=== PATIENT | female | born 1995 | race African-American/Black ===

== ENCOUNTER 2018-06-01 13:12 | Observation (INO) ==
[2018-06-01] MEDS ORDERED: Sod Chloride 0.9% Inj 1,000 ML IV.SIG ONE (13:53)
--- NOTE | 2018-06-01 14:26 | ED ---
HPI Related Data : 1 Para: 0 Total number of abortions (spontaneous and elective): 1 Home Medications Medication Instructions Recorded Confirmed metformin 500 mg PO BID 06/01/18 06/01/18 Previous Rx's Medication Instructions Recorded doxycycline hyclate 100 mg PO BID 7 Days #14 cap 06/01/18 naproxen 500 mg PO BID PRN #10 tab 06/01/18 Allergies Allergy/AdvReac Type Severity Reaction Status Date / Time No Known Allergies Allergy Verified 06/01/18 13:35 General Chief complaint: Vaginal Bleeding Stated complaint: Bleeding / weakness Time Seen by Provider: 06/01/18 13:52 Source: patient Mode of arrival: ambulatory Limitations: no limitations History of Present Illness HPI Narrative: 23-year-old female with a history of diabetes mellitus presents to the emergency department for evaluation of worsening vaginal bleeding over the last couple days. Patient states that she started having vaginal bleeding last Friday and decided to go to [facility] Friday for evaluation. She states that she was 11 weeks however, they dated her at 8 weeks and believe that she had a miscarriage. Patient says this morning the bleeding increased and she started having increased abdominal pain rated 8/10. She says the pain was in her lower pelvic region and back. She states that she had an appointment with her OB today however, she could not wait because of the pain and bleeding. She says she has had a lot of clots. She denies fevers but states she has had chills. Denies chest pain, shortness of breath. Says she has had occasional nausea without vomiting. Her last bowel movement was this morning which was normal for her. She states that her last sexual encounter was 3 weeks ago. She denies vaginal discharge or odor. She denies any other medical issues to include blood disorders. MD Complaint: Reports abdominal pain and vaginal bleeding Pain Consistency: constant Location: Reports pelvis Severity: moderate Quality: Cramping Radiation: Reports pelvis Relieving factors: none Exacerbating factors: none Associated symptoms: Reports nausea and vaginal bleeding; Denies vomiting and vaginal discharge Vaginal bleeding: Reports heavy and clots Review of Systems ROS: all other systems reviewed are negative PMFSH - Medical History Medical History Diabetes (Acute) Family history of diabetes mellitus (Acute) Miscarriage (Acute) No significant past surgical history (Acute) Social History Social History Substance History: No History of Abuse Second Hand Smoke Exposure: No Smoking Status: Never smoker How Often Do You Have a Drink Containing Alcohol: Monthly or less Hx Recent Travel: No Recent Travel in [facility] within the Last 8 Weeks: No Recent Out of Country Travel within the Last 8 Weeks: No Exam Narrative Exam Narrative: GENERAL: WD, WN in NAD SKIN: Focused skin assessment warm/dry. HEAD: Atraumatic. Normocephalic. EYES: Pupils equal and round. No scleral icterus. No injection or drainage. ENT: No nasal bleeding or discharge. Mucous membranes pink and moist. NECK: Trachea midline. No JVD. CARDIOVASCULAR: Regular rate and rhythm. No murmur appreciated. RESPIRATORY: No accessory muscle use. Clear to auscultation. Breath sounds equal bilaterally. GASTROINTESTINAL: Abdomen lower pelvic distended, TTP without rebound tenderness , no CVAT GENITOURINARY: performed with nurse in the room. Normal external genitalia without lesions or erythema. Vaginal vault with continuous bright red blood and clots present. Unable to visualize cervical loss secondary to continuous bleeding. No unusual odor or discharge other than blood. Mild TTP during vaginal exam without adnexal tenderness. No cervical motion tenderness. Uterus tender and enlarged. Bilateral adnexa nontender without masses. MUSCULOSKELETAL: No obvious deformities. No clubbing. No cyanosis. No edema. NEUROLOGICAL: Awake and alert. No obvious cranial nerve deficits. Motor grossly within normal limits. Normal speech. PSYCHIATRIC: Appropriate mood and affect; insight and judgment normal. Course Initial Documented Vital Signs Temperature 97.8 F 06/01/18 13:30 Pulse Rate 100 H 06/01/18 13:30 Respiratory Rate 17 06/01/18 13:30 Blood Pressure 87/55 L 06/01/18 13:30 Pulse Oximetry 100 06/01/18 13:30 Last Documented Vital Signs Temperature 98.3 F 06/01/18 21:49 Pulse Rate 97 H 06/01/18 21:49 Respiratory Rate 20 06/01/18 21:49 Blood Pressure 97/55 L 06/01/18 21:49 Pulse Oximetry 98 06/01/18 19:37 Medical Decision Making DEANNE Attestation DEANNE supervised visit: Yes Attestation: I, Dr. boyle, have reviewed the advance practice practitioner's documentation and am in agreement, met with the patient face to face, made the diagnosis, and the medical decision making was done by me. *My assessment and Findings: 23 G1 at approximately 8 weeks by prior ultrasound but by dates was supposed to be 11 weeks presents with vaginal bleeding. Her initial hemoglobin is 8. She is still bleeding heavily despite Cytotec and her repeat hemoglobin is 7.3. She will be given 1 unit of blood and gynecology will see for evaluation of a possible D&C MDM Narrative Medical decision making narrative: 23-year-old female presents to the emergency department for evaluation of pelvic cramping and vaginal bleeding that worsened this morning. She states that the vaginal bleeding and cramping started last Friday. She went to [facility] and was evaluated with ultrasound and found that the was likely terminated because of the age of the . She believed she was 11 weeks and was dated for 8 weeks. Initial vital signs: BP 87/55, HR 100, 100% Room Air. Initially hemodynamically unstable, 1L NS improved BP to 107/60, HR 88. CBC notable for WBC 16.9, H/H 8.6/28.7. I spoke with Dr. Dow, OB hospitalist rent control office manager who recommended Cytotec 200 mg vaginally and monitor for stability. She will be monitored for 1-2 hours and if no improvement, she'll need to go to the OR for a D&C. @1630 Spoke with patient a boyfriend regarding plan. They agreed. Please see my attending's note as well regarding this patient. She placed a called to Dr. Dow who agreed to see this patient in the ED today. @[address] Dow he said he was able to remove additional clots and tissue from the distal uterus and cervix. He asked me to administer Pitocin 10units IM and Methergine 0.2mg IM in addition to 1U PRBCs. He stated that if she continued to soak through another pad to call him back for a D&C. Plan to discharge after the 1U PRBCs with doxycycline and naproxen for pain. Because of the length of time she requires in the ED, will admit. She has not yet received blood products and patient continues to feel lightheaded and weak. I discussed with Dr. Dow who agreed to the admission. Medical Screen Exam Complete: Yes Emergency Medical Condition: Yes Differential Diagnosis Differential Diagnosis: Threatened , incomplete , retained products of conception, vaginal bleeding, dysfunctional uterine bleeding, cervicitis, myometritis Lab Data Result diagrams: 06/01/18 17:15 06/01/18 13:00 Lab Results 06/01/18 06/01/18 06/01/18 Range/Units 13:00 13:00 13:00 WBC 16.9 H (4.0-11.0) th/mm3 RBC 3.99 L (4.00-5.30) mil/mm3 Hgb 8.6 L (11.6-15.3) gm/dL Hct 28.7 L (35.0-46.0) % MCV 71.9 L (80.0-100.0) fL MCH 21.5 L (27.0-34.0) pg MCHC 29.9 L (32.0-36.0) % RDW 18.1 H (11.6-17.2) % Plt Count 261 (150-450) th/mm3 MPV 9.0 (7.0-11.0) fL Prelim Diff (Auto) Manual diff required WBC Differential Manual diff final Seg Neuts % (Manual) 89 H (16-70) % Band Neuts % (Manual) 2 (0-6) % Lymphocytes % (Manual) 7 L (9-44) % Monocytes % (Manual) 2 (0-8) % Abs Neuts (Manual) 15.4 H (1.8-7.7) th/mm3 Differential Comment . Platelet Estimate Normal (Normal) Platelet Morphology Normal (Normal) PT (9.8-11.6) sec INR Ratio APTT (24.3-30.1) sec Sodium 136 (136-145) meq/L Potassium 4.3 (3.5-5.1) meq/L Chloride 106 (98-107) meq/L Carbon Dioxide 21.3 (21.0-32.0) meq/L Anion Gap 9 (5-15) meq/L BUN 11 (7-18) mg/dL Creatinine 0.76 (0.50-1.00) mg/dL Estimated GFR Greater than 89 (>89) mL/min Random Glucose 322 H (74-106) mg/dL Calcium 8.1 L (8.5-10.1) mg/dL Beta HCG, Quant 1091 H (0-5) mIU/mL Blood Type O Positive Blood Type Recheck Antibody Screen Negative MTS Gel Crossmatch 06/01/18 06/01/18 06/01/18 Range/Units 14:20 17:15 18:20 WBC (4.0-11.0) th/mm3 RBC (4.00-5.30) mil/mm3 Hgb 7.3 L (11.6-15.3) gm/dL Hct (35.0-46.0) % MCV (80.0-100.0) fL MCH (27.0-34.0) pg MCHC (32.0-36.0) % RDW (11.6-17.2) % Plt Count (150-450) th/mm3 MPV (7.0-11.0) fL Prelim Diff (Auto) WBC Differential Seg Neuts % (Manual) (16-70) % Band Neuts % (Manual) (0-6) % Lymphocytes % (Manual) (9-44) % Monocytes % (Manual) (0-8) % Abs Neuts (Manual) (1.8-7.7) th/mm3 Differential Comment Platelet Estimate (Normal) Platelet Morphology (Normal) PT 12.5 H (9.8-11.6) sec INR 1.2 Ratio APTT 19.6 L (24.3-30.1) sec Sodium (136-145) meq/L Potassium (3.5-5.1) meq/L Chloride (98-107) meq/L Carbon Dioxide (21.0-32.0) meq/L Anion Gap (5-15) meq/L BUN (7-18) mg/dL Creatinine (0.50-1.00) mg/dL Estimated GFR (>89) mL/min Random Glucose (74-106) mg/dL Calcium (8.5-10.1) mg/dL Beta HCG, Quant (0-5) mIU/mL Blood Type Blood Type Recheck Antibody Screen MTS Gel Crossmatch See Detail Imaging Data Radiologist's impression: Pelvis Ultrasound 06/01/18 13:53 CONCLUSION: 1. Uterus is enlarged with endometrial stripe thickness about 10 mm. There is some fluid in the endometrial cavity and probable hemorrhage around the cervix. No adnexal mass or free fluid. Discharge Plan Discharge Disposition Patient Disposition: 30 Still Patient Discharge Condition Condition: Fair Discharge Details Diagnosis: Anemia, Missed Physicians Team ED Provider: Wendy Boyle ED Midlevel Provider: Lakia Mercedes Primary Care Provider: Primary Care Tita Schneider Attending Provider: Vahid Dow ED Status: Admitted Observation Patient
[2018-06-01 14:41] LABS: Hematocrit 28.7 % (35.0-46.0); Hemoglobin 8.6 gm/dL (11.6-15.3); Mean Corpuscular Hemoglobin 21.5 pg (27.0-34.0); Mean Corpuscular Volume 71.9 fL (80.0-100.0); Platelet Count 261 th/mm3 (150-450); Red Blood Count 3.99 mil/mm3 (4.00-5.30); Red Cell Distribution Width 18.1 % (11.6-17.2); White Blood Count 16.9 th/mm3 (4.0-11.0)
[2018-06-01 14:48] LABS: Mean Corpuscular HGB Conc 29.9 % (32.0-36.0)
[2018-06-01 15:08] LABS: Anion Gap 9 meq/L (5-15); Blood Urea Nitrogen 11 mg/dL (7-18); Calcium 8.1 mg/dL (8.5-10.1); Carbon Dioxide 21.3 meq/L (21.0-32.0); Chloride 106 meq/L (98-107); Glomerular Filtration Rate Greater Than 89 mL/min (>89); Glucose,Random 322 mg/dL (74-106); Potassium 4.3 meq/L (3.5-5.1); Sodium 136 meq/L (136-145)
[2018-06-01 15:16] LABS: Lymphocytes 7 % (9-44); Monocytes 2 % (0-8); Platelet Estimate Normal (Normal); Platelet Morphology Normal (Normal)
[2018-06-01 15:18] LABS: INR 1.2 Ratio; Prothrombin Time 12.5 sec (9.8-11.6)
[2018-06-01 15:24] LABS: Beta HCG,Quantitative 1091 mIU/mL (0-5)
[2018-06-01] MEDS ORDERED: Sod Chloride 0.9% Inj 1,000 ML IV.SIG SCH (15:30)
[2018-06-01 15:47] LABS: Activated Partial Thrombo Time 19.6 sec (24.3-30.1)
--- NOTE | 2018-06-01 16:35 | US ---
EXAM DATE: 06/01/2018 1:53 PM EDT AGE/SEX: 23 years / Female INDICATIONS: Vaginal bleed post miscarriage. CLINICAL DATA: This is the patient's initial encounter. Patient reports that signs and symptoms have been present for 1 day and indicates a pain score of 5/10. MEDICAL/SURGICAL HISTORY: . Miscarriage. None. COMPARISON: No prior exams available for comparison. TECHNIQUE: Real-time ultrasound of the pelvis was performed using an endovaginal transducer. C,091 MEASUREMENTS: Uterus:__12.9 x 4.5 x 4.2 cm Endometrial Stripe:__10 mm Right Ovary:__ 2.8 x 2.4 x 1.5 cm Left Ovary:__ 4.0 x 2.6 x 1.3 cm FINDINGS: Uterus: Uterus is enlarged endometrial stripe thickness is about 10 mm. There is some fluid in the en dometrial cavity and probable hemorrhage around the cervix. Right Ovary: Ovary contains no mass. Follicles are present. Left Ovary: Ovary contains no mass. Follicles are present. Other: None. CONCLUSION: 1. Uterus is enlarged with endometrial stripe thickness about 10 mm. There is some fluid in the endo metrial cavity and probable hemorrhage around the cervix. No adnexal mass or free fluid. Electronically signed by: Ruben Florian MD 06/01/2018 4:34 PM EDT
[2018-06-01] MEDS ORDERED: miSOPROStol 200 MCG Tablet VAGINAL ONE (16:48)
[2018-06-01] MEDS ORDERED: Sodium Chlor 0.9% Inj 250 ML IV.SIG SCH (19:00)
[2018-06-01] MEDS ORDERED: Methylergonovine Inj 0.2 MG/ML Ampul IM ONE (19:30)
--- NOTE | 2018-06-01 19:53 | P.CONOB ---
History of Present Illness Consult date: 06/01/18 Requesting Physician: Lakia Mercedes Reason for Consult: Continues miscarriage and hemorrhage Primary Care Physician: No Primary Care Physician Chief Complaint: Bleeding vaginally with cramping History of Present Illness: Patient is 23-year-old black female who is in early and now miscarrying. The patient began to have cramping and bleeding Claudia days ago went to [facility] thinking she was 11 weeks along but when they did an ultrasound that she was 8 weeks and likely did not have a heartbeat in her embryo that she would miscarry. She does have an OB doctor but began bleeding and hurting too much to wait to see that doctor so she came to [place] today. Weeks Gestation:: 8 Para: 0 : 1 Review of Systems All other systems reviewed negative except as stated in HPI PMFSH - History History Provided By: Patient - Medical History Medical History: Medical History (Last Reviewed 06/01/18 @ 14:33 by Nargis Golden) Diabetes Family history of diabetes mellitus Miscarriage No significant past surgical history - Tobacco History Second Hand Smoke Exposure: No Smoking Status: Never smoker - Alcohol History How Often Do You Have a Drink Containing Alcohol: Monthly or less - Substance Use History Substance History: No History of Abuse - Travel History History of Recent Travel: No Recent Travel in the [place] Within the Last 8 Weeks: No Recent Travel Out of the Country Within the Last 8 Weeks: No - Immunization History Tetanus Immunization: >5 Years Medications and Allergies Active Medications: Active Medications Sodium Chloride (Ns Inj) 1,000 mls @ 0 mls/hr IV.SIG BOLUS ALIREZA Last Infusion: 06/01/18 16:37 Dose: Infused Sodium Chloride (Ns Inj) 250 mls @ 15 mls/hr IV.SIG ONCE ALIREZA Stop: 06/02/18 11:39 Sodium Chloride (Ns Flush) 2 ml IV.FLUSH PRN PRN PRN Reason: FLUSH AFTER USING IV ACCESS Last Admin: 06/01/18 14:05 Dose: 2 ml Allergies Allergy/AdvReac Type Severity Reaction Status Date / Time No Known Allergies Allergy Verified 06/01/18 13:35 Home Medications Medication Instructions Recorded Confirmed Type metformin 500 mg PO BID 06/01/18 06/01/18 History Exam Vital signs: Vital Signs 06/01/18 13:30 06/01/18 14:30 06/01/18 15:00 Temperature 97.8 F 97.8 F Pulse Rate 100 H 104 H Respiratory Rate 17 17 18 Blood Pressure 87/55 L 109/69 Pulse Oximetry 100 100 06/01/18 16:05 06/01/18 17:00 06/01/18 17:54 Temperature 97.7 F 97.8 F 97.7 F Pulse Rate 98 H 100 H 96 H Respiratory Rate 17 16 16 Blood Pressure 102/60 100/58 L 98/60 L Pulse Oximetry 99 100 100 06/01/18 19:37 Temperature 98.2 F Pulse Rate 95 H Respiratory Rate 20 Blood Pressure 106/57 L Pulse Oximetry 98 Intake & Output 06/01/18 06/01/18 06/02/18 06:59 18:59 06:59 Intake Total 1999 Balance 1999 Weight 81.193 kg Intake: IV 1999 NS Inj 1,000 ML @ Wide Open IV. 1999 SIG BOLUS ALIREZA Rx#:[id number] Narrative: GENERAL: Well-nourished, well-developed patient. SKIN: Warm and dry. HEAD: Normocephalic and atraumatic. EYES: No scleral icterus. No injection or drainage. ENT: No nasal drainage noted. Mucous membranes pink. Airway patent. NECK: Supple, trachea midline. No JVD. CARDIOVASCULAR: Regular rate and rhythm without murmurs, gallops, or rubs. RESPIRATORY: Breath sounds equal bilaterally. No accessory muscle use. BREASTS: Bilateral exam showed no masses , no retractions, no nipple discharge. ABDOMEN/GI: Abdomen soft, non-tender, bowel sounds present, no rebound, no guarding Gravid to [8-] weeks size Fundal Height: nongravid GENITOURINARY: External Genitalia: intact and normal in appearance Copious old blood clots in the vagina and in the internal loss which were grasped with a ring forcep and teased out this is about the size of my fist size clots with some tissue in that and then noticed a small membranous piece of tissue removed. At that time I can see the cervix it was partially closed at that time, there was no other tissue in the internal loss or just above in the lower uterine segment Uterus was anteflexed mid position and nontender gravid size minimally tender is no adnexal masses EXTREMITIES: No cyanosis or edema. BACK: Nontender without obvious deformity. No CVA tenderness. NEUROLOGICAL: Awake and alert. Motor and sensory grossly within normal limits. Five out of 5 muscle strength in all muscle groups. Normal speech. Results - Labs CBC & Chem 7: 06/01/18 17:15 06/01/18 13:00 Labs: Laboratory Results - last 24 hr 06/01/18 06/01/18 06/01/18 13:00 13:00 13:00 WBC 16.9 H RBC 3.99 L Hgb 8.6 L Hct 28.7 L MCV 71.9 L MCH 21.5 L MCHC 29.9 L RDW 18.1 H Plt Count 261 MPV 9.0 Prelim Diff (Auto) Manual diff required WBC Differential Manual diff final Seg Neuts % (Manual) 89 H Band Neuts % (Manual) 2 Lymphocytes % (Manual) 7 L Monocytes % (Manual) 2 Abs Neuts (Manual) 15.4 H Differential Comment . Platelet Estimate Normal Platelet Morphology Normal PT INR APTT Sodium 136 Potassium 4.3 Chloride 106 Carbon Dioxide 21.3 Anion Gap 9 BUN 11 Creatinine 0.76 Estimated GFR Greater than 89 Random Glucose 322 H Calcium 8.1 L Beta HCG, Quant 1091 H Blood Type O Positive Blood Type Recheck Antibody Screen Negative MTS Gel Crossmatch 06/01/18 06/01/18 06/01/18 14:20 17:15 18:20 WBC RBC Hgb 7.3 L Hct MCV MCH MCHC RDW Plt Count MPV Prelim Diff (Auto) WBC Differential Seg Neuts % (Manual) Band Neuts % (Manual) Lymphocytes % (Manual) Monocytes % (Manual) Abs Neuts (Manual) Differential Comment Platelet Estimate Platelet Morphology PT 12.5 H INR 1.2 APTT 19.6 L Sodium Potassium Chloride Carbon Dioxide Anion Gap BUN Creatinine Estimated GFR Random Glucose Calcium Beta HCG, Quant Blood Type Blood Type Recheck Antibody Screen MTS Gel Crossmatch See Detail - Imaging Impressions Pelvis Ultrasound 06/01/18 13:53 CONCLUSION: 1. Uterus is enlarged with endometrial stripe thickness about 10 mm. There is some fluid in the endometrial cavity and probable hemorrhage around the cervix. No adnexal mass or free fluid. I personally reviewed the ultrasound photos and it appears that the large mass in the lower uterine segment and cervix at the time of that ultrasound is what I pulled out in the emergency room just moments ago and that the uterine corpus itself is empty there was no retained products , that is just this large mass that was 5 cm wide and it was in the lower uterine segment and cervix at the time of the scan and now was right at the cervical loss and in upper vagina when I examined her and then I teased out all of that tissue and clot. I believe this uterus now is essentially completely cleared out at this point I doubt much bleeding will continue Assessment and Plan - Diagnosis (1) Spontaneous complicated by delayed or excessive hemorrhage Code(s): O03.6 - Delayed or excessive hemorrhage following complete or unspecified spontaneous Status: Acute (2) Pre-diabetes Code(s): R73.03 - Prediabetes Status: Acute - Plan My plan for this patient is received IM Pitocin 10 mg IM and 0.2 mg of Methergine IM. She is to receive 1 unit of blood here in the emergency room and while that blood is going and she will be observed for further bleeding. If she bleeds excessively then she needs to go to the operating room at that point for a D&C, if not much bleeding continues at this point I doubt that it will at this stage then she can be discharged home on Anaprox for pain, doxycycline 100 mg p.o.twice daily for a week to 10 days, Methergine 0.2 mg p.o. every 4 hours for 48 hours. And she is to follow-up with her OB provider as soon as she can arrange that
--- NOTE | 2018-06-01 22:06 | P.HPOB ---
Patient Name: Michelle Chavez Date of : 89 Patient Status: Observation Attending Provider: Vahid Dow Date: 06/01/18 19:47 Initialization Date: 06/01/18 19:47 History of Present Illness Consult date: 06/01/18 Requesting Physician: Lakia Mercedes Reason for Consult: Continues miscarriage and hemorrhage Primary Care Physician: No Primary Care Physician Chief Complaint: Bleeding vaginally with cramping History of Present Illness: Patient is 23-year-old black female who is in early and now miscarrying. The patient began to have cramping and bleeding Claudia days ago went to [facility] thinking she was 11 weeks along but when they did an ultrasound that she was 8 weeks and likely did not have a heartbeat in her embryo that she would miscarry. She does have an OB doctor but began bleeding and hurting too much to wait to see that doctor so she came to [place] today. Weeks Gestation:: 8 Para: 0 : 1 Review of Systems All other systems reviewed negative except as stated in HPI PMFSH - History History Provided By: Patient - Medical History Medical History: Medical History (Last Reviewed 06/01/18 @ 14:33 by Nargis Golden) Diabetes Family history of diabetes mellitus Miscarriage No significant past surgical history - Tobacco History Second Hand Smoke Exposure: No Smoking Status: Never smoker - Alcohol History How Often Do You Have a Drink Containing Alcohol: Monthly or less - Substance Use History Substance History: No History of Abuse - Travel History History of Recent Travel: No Recent Travel in the [place] Within the Last 8 Weeks: No Recent Travel Out of the Country Within the Last 8 Weeks: No - Immunization History Tetanus Immunization: >5 Years Medications and Allergies Active Medications: Active Medications Sodium Chloride (Ns Inj) 1,000 mls @ 0 mls/hr IV.SIG BOLUS ALIREZA Last Infusion: 06/01/18 16:37 Dose: Infused Sodium Chloride (Ns Inj) 250 mls @ 15 mls/hr IV.SIG ONCE ALIREZA Stop: 06/02/18 11:39 Sodium Chloride (Ns Flush) 2 ml IV.FLUSH PRN PRN PRN Reason: FLUSH AFTER USING IV ACCESS Last Admin: 06/01/18 14:05 Dose: 2 ml Allergies Allergy/AdvReac Type Severity Reaction Status Date / Time No Known Allergies Allergy Verified 06/01/18 13:35 Home Medications Medication Instructions Recorded Confirmed Type metformin 500 mg PO BID 06/01/18 06/01/18 History Exam Vital signs: Vital Signs 06/01/18 13:30 06/01/18 14:30 06/01/18 15:00 Temperature 97.8 F 97.8 F Pulse Rate 100 H 104 H Respiratory Rate 17 17 18 Blood Pressure 87/55 L 109/69 Pulse Oximetry 100 100 06/01/18 16:05 06/01/18 17:00 06/01/18 17:54 Temperature 97.7 F 97.8 F 97.7 F Pulse Rate 98 H 100 H 96 H Respiratory Rate 17 16 16 Blood Pressure 102/60 100/58 L 98/60 L Pulse Oximetry 99 100 100 06/01/18 19:37 Temperature 98.2 F Pulse Rate 95 H Respiratory Rate 20 Blood Pressure 106/57 L Pulse Oximetry 98 Intake & Output 06/01/18 06/01/18 06/02/18 06:59 18:59 06:59 Intake Total 1999 Balance 1999 Weight 81.193 kg Intake: IV 1999 NS Inj 1,000 ML @ Wide Open IV. 1999 SIG BOLUS ALIREZA Rx#:[id number] Narrative: GENERAL: Well-nourished, well-developed patient. SKIN: Warm and dry. HEAD: Normocephalic and atraumatic. EYES: No scleral icterus. No injection or drainage. ENT: No nasal drainage noted. Mucous membranes pink. Airway patent. NECK: Supple, trachea midline. No JVD. CARDIOVASCULAR: Regular rate and rhythm without murmurs, gallops, or rubs. RESPIRATORY: Breath sounds equal bilaterally. No accessory muscle use. BREASTS: Bilateral exam showed no masses , no retractions, no nipple discharge. ABDOMEN/GI: Abdomen soft, non-tender, bowel sounds present, no rebound, no guarding Gravid to [8-] weeks size Fundal Height: nongravid GENITOURINARY: External Genitalia: intact and normal in appearance Copious old blood clots in the vagina and in the internal loss which were grasped with a ring forcep and teased out this is about the size of my fist size clots with some tissue in that and then noticed a small membranous piece of tissue removed. At that time I can see the cervix it was partially closed at that time, there was no other tissue in the internal loss or just above in the lower uterine segment Uterus was anteflexed mid position and nontender gravid size minimally tender is no adnexal masses EXTREMITIES: No cyanosis or edema. BACK: Nontender without obvious deformity. No CVA tenderness. NEUROLOGICAL: Awake and alert. Motor and sensory grossly within normal limits. Five out of 5 muscle strength in all muscle groups. Normal speech. Impression- spont AB with hemorrhage Plan Admit to OBS Transfuse 2 units PRBCs Observe for vag bleeding
[2018-06-01 22:46] LABS: Bilirubin,Urine Negative (Negative); Clarity,Urine Clear (Clear); Color,Urine Yellow (Yellw/Straw); Glucose,Urine (UA) 500 or Greater mg/dL (Negative); Leukocyte Esterase,Urine Negative (Negative); Mucus,Urine Few /lpf (Occasional); Nitrite,Urine Negative (Negative); Specific Gravity,Urine 1.032 (1.002-1.035); Squamous Epithelial Cell,Urine <1 /hpf (0-5)
[2018-06-02 10:04] LABS: Hematocrit 29.6 % (35.0-46.0); Hemoglobin 10.1 gm/dL (11.6-15.3)
--- NOTE | 2018-06-02 12:02 | P.OBGPN ---
S: Patient seen and examined bedside following transfusion. Patient states she is tired from being awakened all night, however she is not have any chest pain/ shortness of breath/dizziness. No further vaginal bleeding. She is feeling well after the transfusion. Patient would like to go home. Objective: GENERAL: Well-nourished, well-developed patient. SKIN: Warm and dry. HEAD: Normocephalic and atraumatic. EYES: No scleral icterus. No injection or drainage. ENT: No nasal drainage noted. Mucous membranes pink. Airway patent. NECK: Supple, trachea midline. No JVD. CARDIOVASCULAR: Regular rate and rhythm without murmurs, gallops, or rubs. RESPIRATORY: Breath sounds equal bilaterally. No accessory muscle use. BREASTS: Bilateral exam showed no masses , no retractions, no nipple discharge. ABDOMEN/GI: Abdomen soft, non-tender, bowel sounds present, no rebound, no guarding Gravid to [8-] weeks size Fundal Height: nongravid GENITOURINARY: External Genitalia: intact and normal in appearance, no VB EXTREMITIES: No cyanosis or edema. BACK: Nontender without obvious deformity. No CVA tenderness. NEUROLOGICAL: Awake and alert. Motor and sensory grossly within normal limits. Five out of 5 muscle strength in all muscle groups. Normal speech. Assessment/plan: 23-year-old black female s/p miscarriage in early Status post 2 units PRBCs, hemoglobin increased from 7.3-10.1 Patient asymptomatic Patient advised to follow-up with [facility], has appointment Patient given doxycycline 100 twice daily times 7 days Patient not requesting pain medication at this time, will prescribe extra strength ibuprofen. Discharge with hemorrhage precautions, precautions to return back to the ED
== END 2018-06-02 14:53 | disposition home or self-care (01) ==
LOC: NEPC 13:12 → NEDA 13:12 → NEPGCP 22:51
PROVIDERS: ADMIT Obstetrics & Gynecology Maternal & Fetal Medicine; ATTEND Obstetrics & Gynecology Maternal & Fetal Medicine